=== PATIENT | female | born 1950 | race Caucasian/White ===

== ENCOUNTER 2022-12-27 12:58 | Outpatient (CLI) | payer MEDICARE | END 2022-12-27 12:59 | disposition home or self-care (01) | LOC: RAD 12:58 | PROVIDERS: ATTEND Urology | DX: N20.0 Calculus of kidney (principal); Z98.890 Other specified postprocedural states | CPT/HCPCS: 74018 ==

== ENCOUNTER 2023-03-06 15:29 | Outpatient (CLI) | payer MEDICARE | END 2023-03-06 15:30 | disposition home or self-care (01) | LOC: ULT 15:29 | PROVIDERS: ATTEND Urology | DX: Z48.815 Encounter for surgical aftercare following surgery on the digestive system (principal); N28.1 Cyst of kidney, acquired; Z98.890 Other specified postprocedural states | CPT/HCPCS: 76770 ==

== ENCOUNTER 2024-06-03 09:28 | Inpatient (IN) | payer MEDICARE ==
[2024-06-03 10:31] LABS: #Basophils 0.07 10x3/uL (0.0-0.2); %Basophils 0.8 % (0.0-1.0); %Eosinophils 4.2 % (0.0-10.0); %Neutrophils 68.5 % (42.0-75.0); Hematocrit 42.2 % (36.0-47.0); Hemoglobin 14.1 g/dL (12.0-16.0); Mean Corpuscular HGB CONC 33.4 g/dL (32.0-36.0); Mean Corpuscular Hemoglobin 30.7 pg (27.0-31.0); Mean Corpuscular Volume 91.9 fL (78.0-98.0); Platelet Count 138 10x3/uL (130-400); RBC Distribution Width 14.3 % (11.5-14.5); Red Blood Cell (RBC) Count 4.59 mill/uL (4.20-5.40)
[2024-06-03 10:36] LABS: ALT (SGPT) 16 U/L (8-55); AST (SGOT) 20 U/L (5-34); Albumin 3.6 g/dL (3.4-4.8); Alkaline Phosphatase 51 U/L (40-110); Anion Gap 16 mmol/L (10-20); BUN (Urea Nitrogen) 17 mg/dL (9.8-20.1); Bilirubin, Total 0.2 mg/dL (0.2-1.2); Calc. Creatinine Clearance 0 mL/min (70-130); Calcium 9.3 mg/dL (7.8-10.44); Carbon Dioxide 22 mmol/L (23-31); Chloride 104 mmol/L (98-107); Estimated GFR 41; Globulin 3.2 g/dL (2.4-3.5); Glucose 161 mg/dL (83-110); Potassium 4.8 mmol/L (3.5-5.1); Protein, Total 6.8 g/dL (5.8-8.1); Sodium 137 mmol/L (136-145)
[2024-06-03 10:38] LABS: Troponin I Less than 0.010 ng/mL (< 0.028)
[2024-06-03 10:56] LABS: Bacteria/HPF None Seen HPF (None Seen); Bilirubin Negative (Negative); Blood, Urine Negative (Negative); CAUTI Indications for Culture Dysuria,urgency,freq; Clarity Clear (Clear); Glucose, Urine (Dipstick) Normal (Negative); Ketone, Urine Negative (Negative); Leukocyte Negative Leu/uL (Negative); Nitrite Negative (Negative); Protein, Urine (Dipstick) Negative (Neg-Trace); RBC/HPF 0-3 HPF (0-3); Specific Gravity, Urine 1.014 (1.002-1.036); Squamous Epithelial None Seen HPF (0-3); Urobilinogen Normal mg/dL (Less than 2); WBC/HPF 0-3 HPF (0-3); pH, Urine 6.5 (5.0-9.0)
[2024-06-03 11:03] LABS: Urine Culture Reflex No No
[2024-06-03] MEDS ORDERED: methylPREDNISolone Sod Succ/PF 125 MG/2 ML VIAL ONE (11:20)
[2024-06-03] MEDS ORDERED: Magnesium 2 GM/50 ML BAG (IN WATER) ONE (11:20)
[2024-06-03 12:11] LABS: Actual Bicarbonate (HCO3v) 17.5 mEq/L (22-28); Analyzer IN Cardio ER; Base Excess -4.8 mEq/L (-2.0 to +3.0); Calcium, Ionized (venous) 1.05 mmol/L (1.16-1.32); Chloride (VBG) 109 mmol/L (98-106); Hematocrit-VBG 44 % (36.0-47.0); Hemoglobin (Hb) 14.9 g/dL (11.7-16.1); Potassium (VBG) 4.48 mmol/L (3.70-5.30); Sodium 137 mmol/L (133-146); pH (venous) 7.445 (7.32-7.43)
[2024-06-03] MEDS ORDERED: cefTRIAXone (ROCEPHIN) 500 MG VIAL ONE (13:42)
[2024-06-03] MEDS ORDERED: Sodium Chloride 0.9% 100 ML ONE ×2 (13:43→13:48)
[2024-06-03] MEDS ORDERED: cefTRIAXone (ROCEPHIN) 2 GM VIAL ONE (13:48)
[2024-06-03 13:52] LABS: Magnesium 2.8 mg/dL (1.6-2.6)
[2024-06-03 14:32] LABS: Troponin I 0.015 ng/mL (< 0.028)
[2024-06-03] MEDS ORDERED: Azithromycin 500 MG VIAL ONE (14:42)
[2024-06-03] MEDS ORDERED: Ondansetron ODT 4 MG TAB SL PRN (17:00)
[2024-06-03] MEDS ORDERED: Ondansetron PF 4 MG/2 ML Vial IVP PRN (17:00)
[2024-06-03] MEDS ORDERED: Acetaminophen 325 MG TAB PO PRN (17:00)
[2024-06-03 17:03] VITALS: BMI 30.4
[2024-06-03 17:40] LABS: Troponin I Less than 0.010 ng/mL (< 0.028)
[2024-06-03] MEDS ORDERED: Nitroglycerin 0.4 MG TAB (25 Tab Bottle) SL PRN (18:24)
[2024-06-03] MEDS ORDERED: Ipratropium/Albuterol 3 ML NEB NEB PRN (18:30)
[2024-06-03] MEDS: Ipratropium/Albuterol 3 ML NEB NEB SCH (19:36)
[2024-06-03] MEDS: Gabapentin 300 MG CAP PO SCH (22:06)
[2024-06-03] MEDS: Famotidine 20 MG TAB PO SCH (22:07)
[2024-06-03] MEDS: busPIRone HCl 10 MG TAB PO SCH (22:07)
[2024-06-03] MEDS: Atorvastatin Calcium 20 MG TAB PO SCH (22:07)
[2024-06-03] MEDS: methylPREDNISolone Sod Succ 40 MG VIAL IVP SCH (22:08)
[2024-06-03] MEDS: Heparin 5,000 UNITS/ML VIAL SC SCH (22:08)
[2024-06-04 05:10] LABS: #Basophils 0.03 10x3/uL (0.0-0.2); #Eosinphils Less than 0.03 10x3/uL (0.0-0.7); %Basophils 0.3 % (0.0-1.0); %Lymphocytes 10.4 % (21.0-51.0); %Monocytes 2.4 % (0.0-10.0); %Neutrophils 86.2 % (42.0-75.0); Hematocrit 43.6 % (36.0-47.0); Hemoglobin 14.3 g/dL (12.0-16.0); Mean Corpuscular HGB CONC 32.8 g/dL (32.0-36.0); Mean Corpuscular Hemoglobin 30.4 pg (27.0-31.0); Mean Corpuscular Volume 92.8 fL (78.0-98.0); Mean Platelet Volume 11.4 fL (7.4-10.4); Platelet Count 152 10x3/uL (130-400)
[2024-06-04 05:39] LABS: Anion Gap 11 mmol/L (10-20); BUN (Urea Nitrogen) 14 mg/dL (9.8-20.1); Calc. Creatinine Clearance 70 mL/min (70-130); Calcium 9.1 mg/dL (7.8-10.44); Carbon Dioxide 24 mmol/L (23-31); Chloride 108 mmol/L (98-107); Estimated GFR 59; Glucose 217 mg/dL (83-110); Potassium 4.9 mmol/L (3.5-5.1); Sodium 138 mmol/L (136-145)
[2024-06-04] MEDS: Lisinopril 20 MG TAB PO SCH (08:13)
[2024-06-04] MEDS: Acetaminophen/Codeine 30-300mg Tablet PO PRN (08:13)
[2024-06-04] MEDS: Sertraline 100 MG TAB PO SCH (08:14)
[2024-06-04] MEDS: cefTRIAXone\\ROCEPHIN 1 GM in Sodium Chloride 0.9% 100 ML IVPB SCH (14:26)
[2024-06-04] MEDS: Azithromycin 500 MG in Sodium Chloride 0.9% 250 ML 250 ML IVPB SCH (14:26)
[2024-06-04] MEDS: Acetaminophen 325 MG TAB PO PRN (16:27)
[2024-06-04] MEDS: traMADol HCl 50 MG TAB PO PRN (20:01)
[2024-06-05] MEDS: oxyCODONE 5 MG TAB PO SCH (17:36)
[2024-06-05] MEDS: Calcium Carbonate 500 MG ChewTAB PO PRN (17:36)
[2024-06-06 06:14] LABS: #Basophils 0.06 10x3/uL (0.0-0.2); #Eosinphils Less than 0.03 10x3/uL (0.0-0.7); %Basophils 0.7 % (0.0-1.0); %Lymphocytes 21.8 % (21.0-51.0); %Monocytes 3.8 % (0.0-10.0); %Neutrophils 71.9 % (42.0-75.0); Hematocrit 41.7 % (36.0-47.0); Hemoglobin 13.8 g/dL (12.0-16.0); Mean Corpuscular HGB CONC 33.1 g/dL (32.0-36.0); Mean Corpuscular Volume 93.7 fL (78.0-98.0); Mean Platelet Volume 11.4 fL (7.4-10.4); Platelet Count 168 10x3/uL (130-400); RBC Distribution Width 13.9 % (11.5-14.5); Red Blood Cell (RBC) Count 4.45 mill/uL (4.20-5.40)
[2024-06-06 06:52] LABS: Anion Gap 11 mmol/L (10-20); BUN (Urea Nitrogen) 17 mg/dL (9.8-20.1); Calc. Creatinine Clearance 84 mL/min (70-130); Calcium 9.6 mg/dL (7.8-10.44); Carbon Dioxide 26 mmol/L (23-31); Chloride 107 mmol/L (98-107); Estimated GFR 73; Glucose 172 mg/dL (83-110); Potassium 4.5 mmol/L (3.5-5.1); Sodium 139 mmol/L (136-145)
[2024-06-06] MEDS: metFORMIN 500 MG TAB PO SCH (08:32)
[2024-06-06] MEDS: Famotidine 20 MG TAB PO SCH (08:32)
[2024-06-06] MEDS: Loperamide HCl 2 MG CAP PO PRN (21:00)
[2024-06-06] MEDS ORDERED: Dextrose 5% in Water 1,000 ML IV PRN (21:51)
[2024-06-06] MEDS ORDERED: Glucagon 1 MG/ML KIT IM PRN (21:51)
[2024-06-06] MEDS ORDERED: Dextrose 50% Abboject 50 ML SYRINGE SLOW IVP PRN (21:51)
[2024-06-07] MEDS: Insulin Lispro 100 UNIT/ML 10 ML VIAL SC PRN (05:44)
[2024-06-07 05:56] LABS: #Basophils 0.04 10x3/uL (0.0-0.2); #Eosinphils Less than 0.03 10x3/uL (0.0-0.7); %Basophils 0.4 % (0.0-1.0); %Lymphocytes 16.8 % (21.0-51.0); %Monocytes 4.9 % (0.0-10.0); %Neutrophils 76.7 % (42.0-75.0); Hematocrit 43.5 % (36.0-47.0); Hemoglobin 14.7 g/dL (12.0-16.0); Mean Corpuscular HGB CONC 33.8 g/dL (32.0-36.0); Mean Corpuscular Hemoglobin 30.9 pg (27.0-31.0); Mean Corpuscular Volume 91.4 fL (78.0-98.0); Mean Platelet Volume 11.6 fL (7.4-10.4); Platelet Count 174 10x3/uL (130-400); RBC Distribution Width 13.5 % (11.5-14.5); Red Blood Cell (RBC) Count 4.76 mill/uL (4.20-5.40)
[2024-06-07 06:14] LABS: Anion Gap 13 mmol/L (10-20); BUN (Urea Nitrogen) 23 mg/dL (9.8-20.1); Calc. Creatinine Clearance 78 mL/min (70-130); Calcium 9.4 mg/dL (7.8-10.44); Carbon Dioxide 24 mmol/L (23-31); Chloride 106 mmol/L (98-107); Estimated GFR 68; Glucose 248 mg/dL (83-110); Potassium 4.5 mmol/L (3.5-5.1); Sodium 138 mmol/L (136-145)
[2024-06-08 05:56] LABS: #Basophils 0.07 10x3/uL (0.0-0.2); #Eosinphils Less than 0.03 10x3/uL (0.0-0.7); %Basophils 0.6 % (0.0-1.0); %Lymphocytes 18.4 % (21.0-51.0); %Monocytes 4.1 % (0.0-10.0); %Neutrophils 75.1 % (42.0-75.0); Hematocrit 48.2 % (36.0-47.0); Mean Corpuscular HGB CONC 33.2 g/dL (32.0-36.0); Mean Corpuscular Hemoglobin 30.5 pg (27.0-31.0); Mean Corpuscular Volume 91.8 fL (78.0-98.0); Platelet Count 197 10x3/uL (130-400); RBC Distribution Width 13.5 % (11.5-14.5); Red Blood Cell (RBC) Count 5.25 mill/uL (4.20-5.40)
[2024-06-08] MEDS ORDERED: Ipratropium/Albuterol 3 ML NEB NEB SCH (06:00)
[2024-06-08] MEDS ORDERED: Lidocaine 4% PF 5 ML AMP NEB SCH (06:00)
[2024-06-08] MEDS ORDERED: Atropine Sulfate 0.4 mg/1 ml Vial IM SCH (06:00)
[2024-06-08 06:41] LABS: Anion Gap 14 mmol/L (10-20); BUN (Urea Nitrogen) 22 mg/dL (9.8-20.1); Calc. Creatinine Clearance 85 mL/min (70-130); Carbon Dioxide 27 mmol/L (23-31); Chloride 103 mmol/L (98-107); Estimated GFR 75; Glucose 179 mg/dL (83-110); Potassium 4.6 mmol/L (3.5-5.1); Sodium 139 mmol/L (136-145)
[2024-06-08] MEDS ORDERED: EPINEPHrine 1 MG/10 ML Abboject SYRINGE ONE (07:03)
[2024-06-08] MEDS ORDERED: fentaNYL PF 100 MCG/2 ML SYRINGE ONE (07:07)
[2024-06-08] MEDS ORDERED: PROPOFOL 20 ML ONE (07:08)
[2024-06-08] MEDS ORDERED: Esmolol 100 MG/10 ML VIAL ONE (08:12)
[2024-06-08] MEDS ORDERED: Albuterol HFA (OR) 200 PUFF INH ONE (08:16)
[2024-06-08] MEDS ORDERED: Rocuronium Bromide 10 MG/ML (10ML VIAL) ONE (08:16)
[2024-06-08] MEDS ORDERED: ePHEDrine Sulfate 50 MG/10 ML VIAL ONE (08:16)
[2024-06-08] MEDS ORDERED: Lidocaine 1% PF 5 ML VIAL ONE (08:16)
[2024-06-08] MEDS ORDERED: Dexamethasone 20 MG/5 ML VIAL ONE (08:18)
[2024-06-08] MEDS ORDERED: Dexamethasone 4 mg/ml Vial ONE (08:23)
[2024-06-08] MEDS ORDERED: Ondansetron PF 4 MG/2 ML Vial ONE (08:28)
[2024-06-08] MEDS ORDERED: SUGAMMADEX SODIUM 200 MG/2 ML VIAL ONE (08:28)
[2024-06-08] MEDS ORDERED: hydrALAZINE 20 MG/ML VIAL SLOW IVP PRN (09:30)
[2024-06-09 05:36] LABS: #Basophils 0.06 10x3/uL (0.0-0.2); #Eosinphils Less than 0.03 10x3/uL (0.0-0.7); %Basophils 0.6 % (0.0-1.0); %Eosinophils 0.1 % (0.0-10.0); %Lymphocytes 30.1 % (21.0-51.0); %Monocytes 6.8 % (0.0-10.0); %Neutrophils 60.5 % (42.0-75.0); Hematocrit 43.8 % (36.0-47.0); Hemoglobin 14.3 g/dL (12.0-16.0); Mean Corpuscular HGB CONC 32.6 g/dL (32.0-36.0); Mean Corpuscular Hemoglobin 30.9 pg (27.0-31.0); Mean Corpuscular Volume 94.6 fL (78.0-98.0); Mean Platelet Volume 11.1 fL (7.4-10.4); Platelet Count 154 10x3/uL (130-400); RBC Distribution Width 13.6 % (11.5-14.5); Red Blood Cell (RBC) Count 4.63 mill/uL (4.20-5.40)
[2024-06-09 05:49] LABS: Anion Gap 13 mmol/L (10-20); BUN (Urea Nitrogen) 24 mg/dL (9.8-20.1); Calc. Creatinine Clearance 77 mL/min (70-130); Calcium 9.3 mg/dL (7.8-10.44); Carbon Dioxide 28 mmol/L (23-31); Chloride 104 mmol/L (98-107); Estimated GFR 66; Glucose 132 mg/dL (83-110); Potassium 4.5 mmol/L (3.5-5.1); Sodium 140 mmol/L (136-145)
[2024-06-09] MEDS: methylPREDNISolone Sod Succ 40 MG VIAL IVP SCH (09:12)
[2024-06-09 15:47] VITALS: BP 124/58; TEMP 97.5
== END 2024-06-09 16:05 | disposition home or self-care (01) | DRG 166 ==
LOC: ERS 09:28 → 2NO 13:25
PROVIDERS: ADMIT Internal Medicine; ATTEND Internal Medicine
PROC: 0BBG8ZX Excision of Left Upper Lung Lobe, Via Natural or Artificial Opening Endoscopic, Diagnostic (ICD-10-PCS; principal; 2024-06-08)
PROC: 3E033XZ Introduction of Vasopressor into Peripheral Vein, Percutaneous Approach (ICD-10-PCS; 2024-06-08)
DX: C34.12 Malignant neoplasm of upper lobe, left bronchus or lung (principal); J18.9 Pneumonia, unspecified organism; J96.01 Acute respiratory failure with hypoxia; J44.1 Chronic obstructive pulmonary disease with (acute) exacerbation; J95.89 Other postprocedural complications and disorders of respiratory system, not elsewhere classified; J98.11 Atelectasis; I10 Essential (primary) hypertension; E11.9 Type 2 diabetes mellitus without complications; E78.5 Hyperlipidemia, unspecified; Z98.49 Cataract extraction status, unspecified eye; F32.A Depression, unspecified; F17.210 Nicotine dependence, cigarettes, uncomplicated; Z79.899 Other long term (current) drug therapy; F41.9 Anxiety disorder, unspecified; G89.4 Chronic pain syndrome
CPT/HCPCS: 36415; 70450; 70553; 71045; 71275; 74177; 76376; 80048; 80053; 81001; 82805; 83605; 83735; 83880; 84484; 85025; 87040; 88112; 88305; 88341; 88342; 93005; 93306; 94640; 94760; 96361; 96365; 96366; 96367; 96368; 96375; J0171; J0456; J0696; J1100; J1644; J1815; J2405; J2704; J2919; J3475; J7050; J7620

== ENCOUNTER 2024-06-19 13:15 | Outpatient (CLI) | payer MEDICARE | END 2024-06-19 13:16 | disposition home or self-care (01) | LOC: PET 13:15 | PROVIDERS: ATTEND Internal Medicine | DX: C34.12 Malignant neoplasm of upper lobe, left bronchus or lung (principal) | CPT/HCPCS: 78815; A9552 ==

== ENCOUNTER 2024-06-26 14:49 | Outpatient (CLI) | payer MEDICARE | END 2024-06-26 14:50 | disposition home or self-care (01) | LOC: BICMAMMO 14:49 | PROVIDERS: ATTEND Internal Medicine | DX: N63.22 Unspecified lump in the left breast, upper inner quadrant (principal) | CPT/HCPCS: 76642; 77066; G0279 ==

== ENCOUNTER → 2024-07-07 | Day surgery (SDC) | payer MEDICARE | LOC: BICULT 12:45 | PROVIDERS: ATTEND Internal Medicine | PROC: 0H9U3ZX Drainage of Left Breast, Percutaneous Approach, Diagnostic (ICD-10-PCS; principal; 2024-07-07) | DX: C50.212 Malignant neoplasm of upper-inner quadrant of left female breast (principal) | CPT/HCPCS: 19083; 88305; 88341; 88342; 88361 ==

== ENCOUNTER 2024-07-15 16:24 | Inpatient (IN) | payer MEDICARE ==
[~2024-07-15 16:24] MED LIST: Iopamidol-370 76% 500 ML MDV (1 ML CHARGE) ONE
[2024-07-15 17:25] LABS: #Basophils 0.07 10x3/uL (0.0-0.2); %Basophils 0.9 % (0.0-1.0); %Eosinophils 0.4 % (0.0-10.0); %Monocytes 0.9 % (0.0-10.0); %Neutrophils 85.9 % (42.0-75.0); Hematocrit 40.5 % (36.0-47.0); Hemoglobin 13.1 g/dL (12.0-16.0); Mean Corpuscular HGB CONC 32.3 g/dL (32.0-36.0); Mean Platelet Volume 11.4 fL (7.4-10.4); Platelet Count 192 10x3/uL (130-400); RBC Distribution Width 14.6 % (11.5-14.5); Red Blood Cell (RBC) Count 4.22 mill/uL (4.20-5.40)
[2024-07-15 17:44] LABS: ALT (SGPT) 12 U/L (8-55); AST (SGOT) 16 U/L (5-34); Albumin 3.3 g/dL (3.4-4.8); Alkaline Phosphatase 52 U/L (40-110); Anion Gap 13 mmol/L (10-20); BUN (Urea Nitrogen) 14 mg/dL (9.8-20.1); Bilirubin, Total 0.5 mg/dL (0.2-1.2); Calc. Creatinine Clearance 0 mL/min (70-130); Calcium 8.4 mg/dL (7.8-10.44); Carbon Dioxide 23 mmol/L (23-31); Chloride 109 mmol/L (98-107); Estimated GFR 69; Globulin 2.7 g/dL (2.4-3.5); Glucose 269 mg/dL (83-110); Lipase 15 U/L (8-78); Magnesium 1.9 mg/dL (1.6-2.6); Potassium 4.5 mmol/L (3.5-5.1); Sodium 140 mmol/L (136-145); Troponin I Less than 0.010 ng/mL (< 0.028)
[2024-07-15] MEDS ORDERED: LevoFLOXacin 750 mg/D5W 150 ml Premix Bag ONE (18:14)
[2024-07-15] MEDS ORDERED: Cefepime 2 GM VIAL ONE (18:14)
[2024-07-15] MEDS ORDERED: methylPREDNISolone Sod Succ/PF 125 MG/2 ML VIAL ONE (18:14)
[2024-07-15] MEDS ORDERED: Enoxaparin 100 MG (1 mL) SYRINGE ONE (18:15)
[2024-07-15] MEDS ORDERED: Sodium Chloride 0.9% 100 ML ONE (18:15)
[2024-07-15] MEDS ORDERED: Ipratropium/Albuterol 3 ML NEB ONE (18:42)
[2024-07-15] MEDS ORDERED: HYDROcodone/Acetaminophen 5/325 mg Tablet PO PRN (19:13)
[2024-07-15] MEDS ORDERED: Dextrose 5% in Water 1,000 ML IV PRN (19:15)
[2024-07-15] MEDS ORDERED: Dextrose 50% Abboject 50 ML SYRINGE SLOW IVP PRN (19:15)
[2024-07-15] MEDS ORDERED: Acetaminophen 325 MG TAB PO PRN (19:15)
[2024-07-15] MEDS ORDERED: Glucagon 1 MG/ML KIT IM PRN (19:15)
[2024-07-15] MEDS ORDERED: Pharmacy to Dose : VANC/ABX'S IVPB PRN (19:28)
[2024-07-15] MEDS ORDERED: Albuterol 2.5 MG (3 mL) NEB NEB PRN (19:29)
[2024-07-15 20:04] LABS: Lactic Acid 1.46 mmol/L (0.5-2.2)
[2024-07-15 20:54] LABS: Bacteria/HPF None Seen HPF (None Seen); Bilirubin Negative (Negative); Blood, Urine Negative (Negative); CAUTI Indications for Culture Pelvic or flank pain; Clarity Clear (Clear); Glucose, Urine (Dipstick) 500 mg/dL (Negative); Ketone, Urine Negative (Negative); Leukocyte Negative Leu/uL (Negative); Nitrite Negative (Negative); Protein, Urine (Dipstick) Negative (Neg-Trace); Specific Gravity, Urine 1.035 (1.002-1.036); Squamous Epithelial None Seen HPF (0-3); Urobilinogen Normal mg/dL (Less than 2); WBC/HPF None Seen HPF (0-3); pH, Urine 7.5 (5.0-9.0)
[2024-07-15 21:00] LABS: Urine Culture Reflex No No
[2024-07-15 21:05] LABS: Troponin I 0.054 ng/mL (< 0.028)
[2024-07-15] MEDS: Ipratropium/Albuterol 3 ML NEB NEB SCH (22:20)
[2024-07-15] MEDS: Atorvastatin Calcium 20 MG TAB PO SCH (22:38)
[2024-07-15] MEDS: busPIRone HCl 10 MG TAB PO SCH (22:38)
[2024-07-15] MEDS: Metoprolol Tartrate 25 MG TAB PO SCH (22:38)
[2024-07-15] MEDS: methylPREDNISolone Sod Succ 40 MG VIAL IVP SCH (22:39)
[2024-07-15 23:44] LABS: Troponin I 0.129 ng/mL (< 0.028)
[2024-07-15] MEDS: Insulin Lispro 100 UNIT/ML 10 ML VIAL SC PRN (23:47)
[2024-07-15] MEDS: fentaNYL 25 mcg Patch TD SCH (23:49)
[2024-07-16 00:19] VITALS: BMI 31.1
[2024-07-16] MEDS: Vancomycin (BATCH) 2 GM in Premix 1 BAG IVPB SCH (00:37)
[2024-07-16] MEDS: Vancomycin 1 GM in Premix 1 BAG IVPB SCH (01:44)
[2024-07-16 04:36] LABS: #Basophils Less than 0.03 10x3/uL (0.0-0.2); #Eosinophils Less than 0.03 10x3/uL (0.0-0.7); %Basophils 0.2 % (0.0-1.0); %Lymphocytes 10.9 % (21.0-51.0); %Monocytes 0.7 % (0.0-10.0); Hematocrit 38.4 % (36.0-47.0); Hemoglobin 12.7 g/dL (12.0-16.0); Mean Corpuscular HGB CONC 33.1 g/dL (32.0-36.0); Mean Corpuscular Hemoglobin 30.8 pg (27.0-31.0); Mean Platelet Volume 11.2 fL (7.4-10.4); Platelet Count 158 10x3/uL (130-400); RBC Distribution Width 13.9 % (11.5-14.5); Red Blood Cell (RBC) Count 4.13 mill/uL (4.20-5.40)
[2024-07-16 04:55] LABS: Anion Gap 12 mmol/L (10-20); BUN (Urea Nitrogen) 15 mg/dL (9.8-20.1); Calc. Creatinine Clearance 80 mL/min (70-130); Calcium 8.2 mg/dL (7.8-10.44); Carbon Dioxide 23 mmol/L (23-31); Chloride 110 mmol/L (98-107); Estimated GFR 68; Glucose 269 mg/dL (83-110); Potassium 4.2 mmol/L (3.5-5.1); Sodium 141 mmol/L (136-145)
[2024-07-16] MEDS: Cefepime 1 GM in Sodium Chloride 0.9% 100 ML IVPB SCH (05:35)
[2024-07-16] MEDS: Insulin Lispro 100 UNIT/ML 10 ML VIAL SC PRN (06:29)
[2024-07-16] MEDS ORDERED: Benzonatate 100 MG CAP PO PRN (08:17)
[2024-07-16] MEDS ORDERED: guaiFENesin/Codeine 200 mg/20 mg 10 ml Cup PO PRN (08:17)
[2024-07-16] MEDS ORDERED: ALPRAZolam 0.25 MG TAB PO PRN (08:28)
[2024-07-16] MEDS: Gabapentin 300 MG CAP PO SCH (09:19)
[2024-07-16] MEDS: Enoxaparin 100 MG (1 mL) SYRINGE SC SCH (09:19)
[2024-07-16] MEDS: Sertraline 100 MG TAB PO SCH (09:19)
[2024-07-16] MEDS: Nicotine 21 MG PATCH TD SCH (09:19)
[2024-07-16] MEDS: Lisinopril 20 MG TAB PO SCH (09:20)
[2024-07-16] MEDS: Aspirin 81 mg Enteric Coated Tablet PO SCH (09:20)
[2024-07-16] MEDS: metFORMIN 500 MG TAB PO SCH (09:20)
[2024-07-16] MEDS: Vancomycin HCl 750 MG in Sodium Chloride 0.9% 250 ML 250 ML IVPB SCH (12:55)
[2024-07-16] MEDS: Dronedarone HCl 400 MG TAB PO SCH (17:09)
[2024-07-16] MEDS: Cefepime 2 GM in Sodium Chloride 0.9% 100 ML IVPB SCH (17:10)
[2024-07-16] MEDS: Apixaban 5 MG TAB PO SCH (21:50)
[2024-07-17 06:54] LABS: Vancomycin, Random 17.6 ug/mL (See Comment)
[2024-07-17] MEDS: Ondansetron PF 4 MG/2 ML Vial IVP PRN (09:37)
[2024-07-17] MEDS ORDERED: Vancomycin 1 GM in Premix 1 BAG IVPB SCH (11:00)
[2024-07-17] MEDS: Cefdinir 300 MG CAP PO SCH (12:13)
[2024-07-17 16:20] VITALS: BP 132/61; TEMP 98.3
[2024-07-17] MEDS ORDERED: methylPREDNISolone Sod Succ 40 MG VIAL IVP SCH (21:00)
[2024-07-17] MEDS ORDERED: Cefdinir 300 MG CAP PO SCH (21:00)
== END 2024-07-17 16:17 | disposition home or self-care (01) | DRG 193 ==
LOC: ERS 16:24 → MSONC 19:22 → OBSVTOIN 07-16 08:58
PROVIDERS: ADMIT Student in an Organized Health Care Education/Training Program; ATTEND Family Medicine
DX: J18.9 Pneumonia, unspecified organism (principal); I21.A1 Myocardial infarction type 2; J96.01 Acute respiratory failure with hypoxia; C34.90 Malignant neoplasm of unspecified part of unspecified bronchus or lung; J44.1 Chronic obstructive pulmonary disease with (acute) exacerbation; J44.0 Chronic obstructive pulmonary disease with (acute) lower respiratory infection; I10 Essential (primary) hypertension; E11.9 Type 2 diabetes mellitus without complications; G89.4 Chronic pain syndrome; E78.5 Hyperlipidemia, unspecified; F41.9 Anxiety disorder, unspecified; I48.0 Paroxysmal atrial fibrillation; F17.210 Nicotine dependence, cigarettes, uncomplicated; Z82.49 Family history of ischemic heart disease and other diseases of the circulatory system; Z98.890 Other specified postprocedural states; Z79.899 Other long term (current) drug therapy
CPT/HCPCS: 36415; 36416; 71045; 71275; 80048; 80053; 80202; 81001; 82248; 82565; 83605; 83615; 83690; 83735; 83880; 84100; 84439; 84443; 84484; 84550; 85025; 87081; 93005; 94640; 94760; 96365; 96375; 96376; G0378; J0692; J1642; J1650; J1815; J1956; J2405; J2919; J3370; J7050; J7620; Q9967